=== PATIENT | male | born 1980 | race Caucasian/White ===

== ENCOUNTER 2020-06-22 22:38 | Emergency (ER) | payer MEDICAID ==
[~2020-06-22] VITALS: Ht 170.2 cm; Wt 65.0 kg
[2020-06-22 22:53] VITALS: Ht 170.2 cm; Wt 65.0 kg
[2020-06-22] MEDS ORDERED: DICLOFENAC SODI50 MG PO (23:29)
[2020-06-22 23:59] VITALS: BP 146/94
== END 2020-06-23 | disposition home or self-care (01) ==
LOC: D.ER 22:38
DX: S46.911A Strain of unspecified muscle, fascia and tendon at shoulder and upper arm level, right arm, initial encounter (principal); X50.0XXA Overexertion from strenuous movement or load, initial encounter; Y93.9 Activity, unspecified; Y92.9 Unspecified place or not applicable; M25.511 Pain in right shoulder